=== PATIENT | male | born 1960 | race Caucasian/White ===

== ENCOUNTER 2018-10-25 17:21 | Inpatient (IN) | payer OTHER ==
[~2018-10-25 17:21] MED LIST: ISOVUE-370 76%-LOCM 1 ML ONE
[2018-10-25] MEDS ORDERED: Acetaminophen 500 MG TAB ONE (17:34)
[2018-10-25] MEDS ORDERED: Ondansetron PF 4 MG/2 ML Vial ONE (17:34)
[2018-10-25] MEDS ORDERED: methylPREDNISolone Sod Succ/PF 125 MG/2 ML VIAL ONE (17:51)
[2018-10-25] MEDS ORDERED: Piperacillin/Tazobactam 4.5 GM VIAL ONE (17:51)
[2018-10-25 17:55] LABS: Hemoglobin 14.9 g/dL (14.0-18.0); Mean Corpuscular HGB CONC 33.6 g/dL (32.0-36.0); Mean Corpuscular Hemoglobin 33.1 pg (27.0-31.0); Mean Corpuscular Volume 98.5 fL (78.0-98.0); Mean Platelet Volume 7.5 fL (7.4-10.4); Platelet Count 254 thou/uL (130-400); RBC Distribution Width 11.9 % (11.5-14.5); Red Blood Cell (RBC) Count 4.49 mill/uL (4.70-6.10); White Blood Cell (WBC) Count 15.1 thou/uL (4.8-10.8)
[2018-10-25 18:11] LABS: Actual Bicarbonate (HCO3a) 18.3 mEq/L (22-28); Analyzer IN Cardio ER; Base Excess (BEa) -2.9 mEq/L (-2.0 to +3.0); Calcium, Ionized 1.07 mmol/L (1.12-1.30); Carboxyhemoglobin (COHb) 1.2 gm% (0.0-3.0); Potassium - ABG Lab 3.17 mmol/L (3.70-5.30)
[2018-10-25 18:14] LABS: Band 21 % (5-11); Lymphocytes 13 % (21-51); MDiff Complete? YES; Monocytes 1 % (0-10); Neutrophil 64 % (42-75); Platelet Morphology Comment Appears Adequate; RBC Morphology Normal; Reactive Lymphocytes 1 % (0-10)
[2018-10-25 18:14] LABS: Puncture Site LRA
--- NOTE | 2018-10-25 18:16 | CT ---
CT ANGIOGRAM OF THE CHEST 10/25/18 HISTORY: Dyspnea. COMPARISON: None. TECHNIQUE: CT angiogram of the chest performed in the axial plane. Three dimension reformatted images are submit may for interpretation. FINDINGS: Minimal blebs in the lung apices. There are patchy interstitial and ground glass opacities in the lef t upper lobe. Tree-in-bud opacities in the lingula and inferior aspect of the right lower lobe. Corre late for atypical infection. More focal consolidation in the left lower lobe may represent edema or p neumonia/aspiration. There are no lytic or blastic lesions in the osseous structures. No mediastinal mass or hematoma. The re are nonenlarged paratracheal and AP window lymph nodes. There does appear to be enlarged subcarina l lymph node measuring 2.9 x 1.5 cm. Minimal fullness in the left and right hilum. Normal heart size. No pericardial effusion. The thoracic aorta and abdominal aorta have a normal caliber. No periaortic fat stranding. There is adequate contrast opacification of the central pulmonary arteries to the lev el of the segmental arteries. No filling defect to suggest thromboembolism. Gallbladder is surgically absent. Visualized upper solid organs are unremarkable. There is enlarged r ight axillary lymph node with a preserved fatty hilum. IMPRESSION: 1. No evidence of pulmonary artery embolism to the level of the segmental arteries. 2. Enlarged subcarinal lymph nodes measuring 2.8 x 1.5 cm. Significance of this enlarged lymph n ode is uncertain. Additional scattered nonspecific mediastinal lymph nodes are noted. Given the prese nce of tree-in-bud opacities in the lung parenchyma, possibility of a reactive lymphadenopathy in the mediastinum should be considered. POS: PPP
[2018-10-25 18:19] LABS: ALT (SGPT) 31 U/L (8-55); AST (SGOT) 30 U/L (5-34); Albumin 4.1 g/dL (3.5-5.0); Alkaline Phosphatase 84 U/L (40-150); Anion Gap 15 mmol/L (10-20); BUN (Urea Nitrogen) 15 mg/dL (8.4-25.7); Bilirubin, Total 0.8 mg/dL (0.2-1.2); Calc. Creatinine Clearance 0 mL/min (70-130); Calcium 9.1 mg/dL (7.8-10.44); Carbon Dioxide 20 mmol/L (22-29); Chloride 104 mmol/L (98-107); Estimated GFR-MDRD Greater than 90; Globulin 3.1 g/dL (2.4-3.5); Glucose 122 mg/dL (70-105); Potassium 3.4 mmol/L (3.5-5.1); Protein, Total 7.2 g/dL (6.0-8.3); Sodium 136 mmol/L (136-145)
[2018-10-25 18:29] LABS: Bilirubin Negative (Negative); Blood, Urine Negative (Negative); Clarity CLEAR (Clear); Glucose, Urine (Dipstick) Negative (Negative); Leukocyte Negative (Negative); Nitrite Negative (Negative); Protein, Urine (Dipstick) Negative (Neg-Trace); Specific Gravity, Urine 1.036 (1.002-1.036); pH, Urine 7.5 (5.0-9.0)
--- NOTE | 2018-10-25 18:32 | RAD ---
FRONTAL VIEW CHEST: 10/25/18 INDICATION: Cough. FINDINGS: There is interstitial prominence of the bilateral perihilar regions. Mild elevation of the left hemid iaphragm. The cardiac silhouette is accentuated by portable technique. IMPRESSION: Bilateral perihilar interstitial prominence may relate to edema versus bronchiolitis. Correlate clini dieudonne. Imaging followup may be obtained, as indicated. POS: ALEJANDRO
[2018-10-25 18:41] LABS: CKMB 1.1 ng/mL (0-6.6)
--- NOTE | 2018-10-25 19:48 | PDOC.FPRHP ---
- History of Present Illness Chief Complaint: dyspnea History of Present Illness: Pt is a 58 yo M with PMH of IBS and RA presents for worsening SOB, cough, fever , body aches, and pleuritic chest pain that started 5 days ago. Patient states intermittent fever/chills started 5 days ago (last tuesday) along with cough. Symptoms have been worsening. Today he tried to go to work, and came home because he wasn't feeling well. Significant other stated that when he came home he was confused and staggering, complained of dizziness and lightheadedness and she called the ambulance. He states he doesn't remember driving home and has intermittent memory of what happened when he arrived home. He never lost consciousness. 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 He smokes 1 PPD since age 18. ED Course: In ED his SOB improved with duoneb. Elevated WBC, tachycardic, R were 22, Fever 101.1. CXR showed bilateral perihilar interstitial prominence. CT chest neg for PE, showed enlarged subcarinal lymph nodes and tree-in-bud opacities in lung parnechyma - Allergies/Adverse Reactions Allergies Allergy/AdvReac Type Severity Reaction Status Date / Time No Known Allergies Allergy Verified 10/26/18 00:20 - Home Medications Medication Instructions Recorded Confirmed Type Atorvastatin Calcium [Lipitor] 1 tab PO DAILY 10/25/18 10/25/18 History DULoxetine HCl [Cymbalta] 1 tab PO DAILY 10/25/18 10/25/18 History Gabapentin [Neurontin] 1 tab PO DAILY 10/25/18 10/25/18 History Levothyroxine Sodium [Tirosint] 1 tab PO DAILY 10/25/18 10/25/18 History rOPINIRole HCl [Ropinirole HCl] 1 tab PO HS 10/25/18 10/25/18 History - History PMHx: IBS, RA no meds, RLS, HLD, TSH PSHx: cervical spine surgery,tonsillectomy, cholecystectomy, cardiac cath ( normal) FHx: No cardiac disease, DM in mGM, HTN in mother Social: 1 ppd smoker since age 17 (20 PY), 6 beers/week, denied illicit drug use - Review of Systems General: reports: fever/chills, weight/appetite/sleep changes (decreased appetite), fatigue, other (headache) ENT: denies: nasal congestion, rhinorrhea Respiratory: reports: cough, congestion, shortness of breath Cardiovascular: reports: chest pain. denies: palpitation Gastrointestinal: reports: nausea, vomiting, diarrhea, abdominal pain. denies: constipation, GI bleeding Genitourinary: denies: incontinence, dysuria, polyuria Skin: denies: rashes, lesions Musculoskeletal: reports: stiffness (of joints- worse than his usual RA), swelling, arthritis/arthralgias Neurological: reports: numbness (R leg, he has been worked up with multiple spine MRIs). denies: weakness Psychological: reports: depression (Not treated, sometimes worse with RA flare) . denies: anxiety - Vital signs BP: [117/65] HR: [102] RR: [22] Tmax: [101.1] Pox: [97]% on [RA] Wt: [91 kg] - Physical Exam Constitutional: awake, alert and oriented, other (apperas sweating and flushed) HEENT: normocephalic and atraumatic, PERRLA, EOMI, MMM, oropharynx clear Neck: supple, no LAD Heart: RRR, normal S1/S2, no murmurs/rubs/gallops, pulses present, no edema Lungs: other (diffuse expiratory wheezing and rhonchi) Abdomen: soft, non-tender, bowel sounds present, no masses/distention Neurological: CN II-XII intact, other (strength 5/5 in upper and lower extremities) Psychiatric: normal mood and affect, good judgment and insight, intact recent and remote memory FMR H&P: Results - Labs Result Diagrams: 10/25/18 17:44 10/25/18 17:44 Lab results: WBC 15.1 thou/uL (4.8-10.8) H 10/25/18 17:44 Hgb 14.9 g/dL (14.0-18.0) 10/25/18 17:44 Hct 44.2 % (42.0-52.0) 10/25/18 17:44 MCV 98.5 fL (78.0-98.0) H 10/25/18 17:44 Plt Count 254 thou/uL (130-400) 10/25/18 17:44 Band Neuts % (Manual) 21 % (5-11) H 10/25/18 17:44 ABG pH 7.50 (7.35-7.45) H 10/25/18 18:00 ABG pCO2 24.0 mmHg (35.0-45.0) L* 10/25/18 18:00 ABG pO2 69.0 mmHg (80.0-100.0) L 10/25/18 18:00 Sodium 136 mmol/L (136-145) 10/25/18 17:44 Potassium 3.4 mmol/L (3.5-5.1) L 10/25/18 17:44 Chloride 104 mmol/L (98-107) 10/25/18 17:44 Carbon Dioxide 20 mmol/L (22-29) L 10/25/18 17:44 BUN 15 mg/dL (8.4-25.7) 10/25/18 17:44 Creatinine 0.86 mg/dL (0.7-1.3) 10/25/18 17:44 Glucose 122 mg/dL (70-105) H 10/25/18 17:44 Lactic Acid 2.8 mmol/L (0.5-2.2) H 10/25/18 17:44 Calcium 9.1 mg/dL (7.8-10.44) 10/25/18 17:44 Total Bilirubin 0.8 mg/dL (0.2-1.2) 10/25/18 17:44 AST 30 U/L (5-34) 10/25/18 17:44 ALT 31 U/L (8-55) 10/25/18 17:44 Alkaline Phosphatase 84 U/L (40-150) 10/25/18 17:44 CK-MB (CK-2) 1.1 ng/mL (0-6.6) 10/25/18 17:44 B-Natriuretic Peptide Less than 10.0 pg/mL (0-100) 10/25/18 17:44 Serum Total Protein 7.2 g/dL (6.0-8.3) 10/25/18 17:44 Albumin 4.1 g/dL (3.5-5.0) 10/25/18 17:44 Urine Ketones Negative mg/dL (Negative) 10/25/18 18:05 Urine Blood Negative (Negative) 10/25/18 18:05 Urine Nitrite Negative (Negative) 10/25/18 18:05 Ur Leukocyte Esterase Negative (Negative) 10/25/18 18:05 - EKG Interpretation EK mm ST depression in lateral leads - Radiology Interpretation Chest x-ray Status: image reviewed by me, report reviewed by me Additional comment: CXR showed bilateral perihilar interstitial prominence. CT scan - chest Status: image reviewed by me, report reviewed by me Additional comment: CT chest neg for PE, showed enlarged subcarinal lymph nodes and tree-in-bud opacities in lung parnechyma FMR H&P: A/P - Problem List (1) Sepsis due to pneumonia Current Visit: Yes Status: Acute Code(s): J18.9 - PNEUMONIA, UNSPECIFIED ORGANISM; A41.9 - SEPSIS, UNSPECIFIED ORGANISM (2) Tobacco abuse Current Visit: Yes Status: Chronic Code(s): Z72.0 - TOBACCO USE (3) RLS (restless legs syndrome) Current Visit: Yes Status: Acute (4) HLD (hyperlipidemia) Current Visit: Yes Status: Chronic Code(s): E78.5 - HYPERLIPIDEMIA, UNSPECIFIED (5) Hypothyroid Current Visit: Yes Status: Chronic Code(s): E03.9 - HYPOTHYROIDISM, UNSPECIFIED (6) Rheumatoid arthritis Current Visit: Yes Status: Chronic Code(s): M06.9 - RHEUMATOID ARTHRITIS, UNSPECIFIED (7) IBS (irritable bowel syndrome) Current Visit: Yes Status: Chronic (8) Hypokalemia Current Visit: Yes Status: Chronic Code(s): E87.6 - HYPOKALEMIA - Plan 58 yo M Sepsis 2/2 CAP -Fluid rescuscitation with 30 mg/kg NS, then MIVF with NS @ 125 ml/hr -LA 2.8, WBC 15.1 with bandemia, tachycardic with elevated respirations -Influenza negative -PRN duoneb -Levaquin (10/25) -Strep pneumo urine antigen, Legionella urine -Procal -PRN zofran -PRN tylenol and ibuprofen for fever -blood and urine cx pending -AM CBC and CMP Indeterminate trop - EKG showed 1mm st depression in lateral lead -.029, trending Tobacco abuse -1 ppd smoker -Nicoderm RLS -home ropinirole HLD -continue home atorvastatin Hypothyroid -TSH Rheumatoid arthritis -Not on medication, aware IBS -chronic diarrhea, aware Mild hypokalemia -3.4, continue to monitor Dispo: admit to medical, LOS >2 midnights DVT ppx: lovenox Code status: full Diet: regular FMR H&P: Upper Level - Pertinent history Kevin Camejo is a 58 year old male with a history of tobacco abuse who presents to the ED for 1 week history of dyspnea and fever. 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 - Pertinent findings Tmax: 101.1 RR: 22 97% on RA BP: 117/65 wt: 91 kg Exam: General: alert and oriented; ill-appearing, diaphoretic Heart: RRR, no MRG Lungs: bibasilar crackles. faint wheezes in upper lung quigley. No use of accessory muscles of respiration. Extremities: no peripheral edema - Plan Date/Time: 10/25/181947 I, Radha Torres, have evaluated this patient and agree with findings/plan as outlined by internet merchant resident. Pertinent changes/additions are listed here. Assessment/Plan 1. Sepsis secondary to community acquired pneumonia. - will admit pt to medical inpatient - received 2L.. Will administer another 700 ml to achieve 30 ml/kg fluid bolus. - blood cultures pending - procal, urine legionella/strep - will treat with Levaquin 750 mg - supplemental oxygen if needed. PRN duonebs. 2. Tobacco abuse - TD nicotine 3. IBS - home meds 4. Hypothyroidism -home meds, check TSH 5. Chronic pain -home meds 6. RA - not currently on medications. Addendum - Attending - Attending Attestation Date/Time: 10/26/18517 I personally evaluated the patient and discussed the management with Dr. 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
[2018-10-25] MEDS ORDERED: Ibuprofen 600 MG TAB PO PRN (20:54)
[2018-10-25] MEDS ORDERED: Sodium Chloride 0.9% 1,000 ML IV SCH (21:15)
[2018-10-25 21:42] LABS: Lactic Acid 1.7 mmol/L (0.5-2.2)
[2018-10-25 21:46] LABS: Troponin I 0.017 ng/mL (< 0.028)
[2018-10-25] MEDS ORDERED: Ondansetron ODT 4 MG TAB PO PRN (22:55)
[2018-10-25] MEDS ORDERED: Loperamide HCl 2 MG CAP PO PRN (22:55)
[2018-10-25] MEDS ORDERED: Ondansetron PF 4 MG/2 ML Vial IVP PRN (22:55)
[2018-10-25] MEDS ORDERED: Acetaminophen 650 MG Suppository PR PRN (22:55)
[2018-10-25] MEDS ORDERED: Acetaminophen 325 MG TAB PO PRN (22:55)
[2018-10-25] MEDS: Sodium Chloride 0.9% 1,000 ML IV SCH (23:14)
[2018-10-25 23:34] VITALS: BMI 27.8
[2018-10-25] MEDS ORDERED: rOPINIRole HCl 1 MG TAB PO SCH (23:59)
--- NOTE | 2018-10-26 | PDOC.EVN ---
Addendum - Attending - Attending Attestation Date/Time: 10/25/18 [id number] I personally evaluated the patient and discussed the management with Dr. Jeffrey I agree with the History, Examination, Assessment and Plan documented in Resident HX and PE see for further details . 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 Patient present with SOB, CXR and CT suggest Pneumonia. PMHX notable for RA off DMARDS at present, IBS,Hypothyroidism,colon polyps with positive FMHX colon CA father. Patient with heart cath approximately one year ago in [place] self reported as normal. Exam notable for diffuse crackles throughout lung quigley. Patient with sepsis from PNA strongly consider atypicals legionella etc admit for empirical AB and further evaluation.
[2018-10-26 00:38] LABS: Legionella Urinary Ag Negative (Negative); Strep pneumo Urine Ag NEGATIVE (NEGATIVE)
[2018-10-26] MEDS: Sodium Chloride 0.9% 1,000 ML IV SCH (05:21)
[2018-10-26] MEDS ORDERED: Levothyroxine Sodium 88 MCG TAB PO SCH (06:00)
--- NOTE | 2018-10-26 06:56 | PDOC.FM ---
- Subjective Subjective: NAEO. Patient reports that his CP has improved. Still endorses fever & chills overnight. Says appetite is ok and main complaint is just being tired. Has a persistent cough but says it is non-productive. Denies any SOB. - Objective MAR Reviewed: Yes Vital Signs & Weight: Vital Signs (12 hours) Temp Pulse Resp BP Pulse Ox 10/26/18 05:25 98.4 F 62 18 94/58 L 97 10/26/18 00:20 100 10/25/18 22:55 98.2 F 61 18 92/62 100 Weight Weight 90.673 kg Result Diagrams: 10/26/18 07:29 10/26/18 07:29 Phys Exam - Physical Examination Constitutional: NAD HEENT: moist MMs, sclera anicteric Neck: supple, full ROM Respiratory: no wheezing, no rales, no rhonchi, clear to auscultation bilateral Cardiovascular: RRR, no significant murmur Gastrointestinal: soft, positive bowel sounds Neurological: non-focal, moves all 4 limbs Psychiatric: normal affect, A&O x 3 Skin: no rash, normal turgor Dx/Plan (1) Sepsis due to pneumonia Code(s): J18.9 - PNEUMONIA, UNSPECIFIED ORGANISM; A41.9 - SEPSIS, UNSPECIFIED ORGANISM Status: Acute (2) RLS (restless legs syndrome) Status: Acute (3) HLD (hyperlipidemia) Code(s): E78.5 - HYPERLIPIDEMIA, UNSPECIFIED Status: Chronic (4) Hypokalemia Code(s): E87.6 - HYPOKALEMIA Status: Chronic (5) Hypothyroid Code(s): E03.9 - HYPOTHYROIDISM, UNSPECIFIED Status: Chronic (6) IBS (irritable bowel syndrome) Status: Chronic (7) Rheumatoid arthritis Code(s): M06.9 - RHEUMATOID ARTHRITIS, UNSPECIFIED Status: Chronic (8) Tobacco abuse Code(s): Z72.0 - TOBACCO USE Status: Chronic - Plan Plan: 58 YOM w/ a PMH significant for tobacco use and RA who presented to the ED with a CC of pleuritic chest pain with associated fever that began 5 days ago and was determined to be septic 2/2 CAP. Sepsis 2/2 CAP -Patient is s/p 30 mg/kg NS in the ED. Will continue MIVFs but with LR @ 125 ml/ hr. -LA 2.8 but trended down to 1/7 s/p fluid resuscitation overnight. WBC 15.1 with bandemia but down to 13 this AM. Tachycardia & fever have resolved since being on the floor. Lungs CTAB; however, patient tachypnic on exam. -Influenza negative & strep pneumo & legionella urine antigens negative. Legionella PCR pending. - Procal 1.0 w/ blood Cxs pending. - Will continue IV levaquin since procal in indeterminate range. - Will continue PRN Duonebs, zofran, and tylenol and ibuprofen for symptomatic treatment. Will consider initiating IS as well. Metabolic acidosis - Likely 2/2 lactic acidosis in setting of acute illness. However, lactate improved and acidosis worsened per AM BMP. - Will switch to LR for mIVFs and continue to monitor. Patient tachypnic on exam though so could be compensation for respiratory alkalosis. - Will continue to monitor w/ QD BMPs. Indeterminate trop - EKG showed 1mm st depression in lateral lead - Initial troponin .029 but downtrended. Likely 2/2 demand ischemia in setting of acute illness. Tobacco abuse -1 ppd smoker -Albinm RLS -home ropinirole HLD -continue home atorvastatin Hypothyroid -TSH WNLs Rheumatoid arthritis -Not on medication, aware IBS -chronic diarrhea, aware Chronic neck and back pain - Patient reports taking [place] PRN at home. - Will request home med list before initiating in hospital. - Will continue ibuprofen and tylenol for pain control for now. - Will also consider adding a muscle relaxer PRN as patient said these have helped him in the past as well. Mild hypokalemia, resolved - K 3.8 this AM. - Will continue to monitor Dispo: admit to medical, LOS >2 midnights DVT ppx: lovenox Code status: full Diet: HH Abx: Levaquin IVFs: LR @ 125mL/hr Addendum - Attending - Attending Attestation Date/Time: 10/26/18 [id number] I personally evaluated the patient and discussed the management with Dr. Espino I agree with the History, Examination, Assessment and Plan documented above with any addition or exceptions noted below- Patient feeling better; sill feeling weak/tired. Afebrile VSS. A/P: 1) CAP - Continue current abx. Await legionella pcr. 2) Lactic acidosis- resolved; continue IVF. 3) hypothyroidism- continue home meds.
[2018-10-26 07:51] LABS: #Lymphocytes 1.6 thou/uL (1.20-3.40); #Monocytes 0.7 thou/uL (0.11-0.59); #Neutrophils 11.3 thou/uL (1.40-6.50); %Eosinophils 0.2 % (0.0-10.0); %Lymphocytes 11.7 % (21.0-51.0); %Monocytes 5.1 % (0.0-10.0); %Neutrophils 82.9 % (42.0-75.0); Hemoglobin 12.6 g/dL (14.0-18.0); Mean Corpuscular HGB CONC 33.3 g/dL (32.0-36.0); Mean Corpuscular Hemoglobin 33.4 pg (27.0-31.0); Mean Platelet Volume 7.7 fL (7.4-10.4); Platelet Count 219 thou/uL (130-400); RBC Distribution Width 11.9 % (11.5-14.5); Red Blood Cell (RBC) Count 3.76 mill/uL (4.70-6.10); White Blood Cell (WBC) Count 13.6 thou/uL (4.8-10.8)
[2018-10-26 08:12] LABS: Anion Gap 14 mmol/L (10-20); BUN (Urea Nitrogen) 15 mg/dL (8.4-25.7); Calc. Creatinine Clearance 141 mL/min (70-130); Calcium 8.6 mg/dL (7.8-10.44); Carbon Dioxide 18 mmol/L (22-29); Chloride 112 mmol/L (98-107); Estimated GFR-MDRD Greater than 90; Glucose 173 mg/dL (70-105); Potassium 3.8 mmol/L (3.5-5.1); Sodium 140 mmol/L (136-145)
[2018-10-26] MEDS: Enoxaparin Sodium 40 MG/0.4 ML SYRINGE SC SCH (08:22)
[2018-10-26] MEDS: Atorvastatin Calcium 20 MG TAB PO SCH (08:23)
[2018-10-26] MEDS: Nicotine 21 MG PATCH TD SCH (08:24)
[2018-10-26] MEDS ORDERED: Cyclobenzaprine 10 MG TAB PO PRN (09:10)
[2018-10-26] MEDS: Lactated Ringer's 1,000 ML IV SCH ×3 (11:50→19:51)
[2018-10-26] MEDS ORDERED: tiZANidine HCl 4 MG TAB PO PRN (12:56)
[2018-10-26] MEDS ORDERED: DULoxetine 60 MG CAP PO SCH (13:15)
--- NOTE | 2018-10-26 13:17 | EKG ---
Test Reason : Blood Pressure : / mmHG Vent. Rate : 068 BPM Atrial Rate : 068 BPM P-R Int : 142 ms QRS Dur : 076 ms QT Int : 468 ms P-R-T Axes : 059 065 093 degrees QTc Int : 497 ms Normal sinus rhythm Nonspecific ST and T wave abnormality Abnormal ECG No previous ECGs available Confirmed by MONSE GARCIA, DR. Lomas ([id number]) on 10/26/2018 1:17:07 PM Referred By: NICOLE Confirmed By:DR. Abebe SHEA MD
[2018-10-26] MEDS ORDERED: Gabapentin 100 MG CAP PO SCH ×2 (15:00→21:00)
[2018-10-26] MEDS: Gabapentin 300 MG CAP PO SCH ×2 (15:50→20:08)
[2018-10-26] MEDS: HYDROcodone/Acetaminophen 5/325 mg Tablet PO PRN ×2 (15:58→23:59)
[2018-10-26] MEDS ORDERED: rOPINIRole HCl 1 MG TAB PO SCH (21:00)
[2018-10-27] MEDS: Lactated Ringer's 1,000 ML IV SCH (04:11)
[2018-10-27] MEDS ORDERED: Levothyroxine Sodium 112 MCG TAB PO SCH (06:00)
[2018-10-27] MEDS ORDERED: Levothyroxine 150 MCG TAB PO SCH (06:00)
--- NOTE | 2018-10-27 07:27 | PDOC.FM ---
- Subjective Subjective: NAEO. Patient states he feels tired this AM and still did not sleep well overnight despite getting his regular pain med regimen. Denies any chest pain, SOB, or wheezing. Has a persistent cough but states it is non-productive. Denies any N/V/D. - Objective MAR Reviewed: Yes Vital Signs & Weight: Vital Signs (12 hours) Temp Pulse Resp BP BP Pulse Ox 10/27/18 04:29 121/78 10/26/18 19:50 98.7 F 62 18 109/62 95 Weight Weight 90.673 kg I&O: 10/26/18 10/27/18 10/28/18 06:59 06:59 06:59 Intake Total 5890 Output Total 0 Balance 5890 Result Diagrams: 10/27/18 08:33 10/27/18 08:33 Phys Exam - Physical Examination Constitutional: NAD HEENT: moist MMs, sclera anicteric Neck: supple, full ROM Respiratory: no wheezing, no rales, no rhonchi, clear to auscultation bilateral Cardiovascular: RRR, no significant murmur Gastrointestinal: no distention, positive bowel sounds Neurological: non-focal, moves all 4 limbs Psychiatric: normal affect, A&O x 3 Skin: no rash, normal turgor Dx/Plan (1) Sepsis due to pneumonia Code(s): J18.9 - PNEUMONIA, UNSPECIFIED ORGANISM; A41.9 - SEPSIS, UNSPECIFIED ORGANISM Status: Acute (2) RLS (restless legs syndrome) Status: Acute (3) HLD (hyperlipidemia) Code(s): E78.5 - HYPERLIPIDEMIA, UNSPECIFIED Status: Chronic (4) Hypokalemia Code(s): E87.6 - HYPOKALEMIA Status: Chronic (5) Hypothyroid Code(s): E03.9 - HYPOTHYROIDISM, UNSPECIFIED Status: Chronic (6) IBS (irritable bowel syndrome) Status: Chronic (7) Rheumatoid arthritis Code(s): M06.9 - RHEUMATOID ARTHRITIS, UNSPECIFIED Status: Chronic (8) Tobacco abuse Code(s): Z72.0 - TOBACCO USE Status: Chronic - Plan Plan: 58 YOM w/ a PMH significant for tobacco use and RA who presented to the ED with a CC of pleuritic chest pain with associated fever that began 5 days ago and was determined to be septic 2/2 CAP. Sepsis 2/2 CAP - Tachycardia & fever have resolved since being on the floor. Lungs CTAB on exam. - Influenza negative & strep pneumo & legionella urine antigens negative. Legionella PCR pending. - Procal 1.0 w/ blood Cxs NTD. Repeat procal pending for this AM to monitor response to treatment. - Will switch to PO levaquin since patient is tolerating PO well. - Will continue PRN Duonebs, zofran, and tylenol and ibuprofen for symptomatic treatment. Will consider initiating IS today. Metabolic acidosis - Resolved as HCO3 WNLs at 26 this AM. - Will stop IVFs as patient has just over 3L of PO intake yesterday. - Will continue to monitor. Indeterminate trop - EKG showed 1mm st depression in lateral lead - Initial troponin .029 but downtrended. Likely 2/2 demand ischemia in setting of acute illness. Tobacco abuse -1 ppd smoker -Nicoderm RLS -home ropinirole HLD -continue home atorvastatin Hypothyroid -TSH WNLs Rheumatoid arthritis -Not on medication, aware IBS -chronic diarrhea, aware Chronic neck and back pain - Will continue home [place] & zanaflex that was confirmed with patient's pharmacy yesterday. Mild hypokalemia, resolved - K WNLs this AM. - Will continue to monitor Dispo: Will monitor over the course of today and if patient remains stable in no respiratory distress, will possibly d/c home on PO abx. DVT ppx: lovenox Code status: full Diet: HH Abx: Levaquin IVFs: SL Addendum - Attending - Attending Attestation Date/Time: 10/27/18 6789 I personally evaluated the patient and discussed the management with Dr. Espino I agree with the History, Examination, Assessment and Plan documented above with any addition or exceptions noted below- [place] feeling much better. Decreased cough and malaise. Walking in hallways. Afebrile VSS. A/P: 1) CAP - improved; continue levaquin ans re-evaluate in afternoon. If continuing to do well will d/c home.
[2018-10-27] MEDS: Atorvastatin Calcium 20 MG TAB PO SCH (08:12)
[2018-10-27] MEDS: Gabapentin 300 MG CAP PO SCH ×2 (08:12→15:27)
[2018-10-27] MEDS: Enoxaparin Sodium 40 MG/0.4 ML SYRINGE SC SCH (08:13)
[2018-10-27] MEDS: Nicotine 21 MG PATCH TD SCH (08:15)
[2018-10-27 08:47] LABS: #Eosinphils 0.1 thou/uL (0.0-0.7); #Monocytes 0.7 thou/uL (0.11-0.59); #Neutrophils 6.5 thou/uL (1.40-6.50); %Basophils 0.3 % (0.0-1.0); %Eosinophils 0.6 % (0.0-10.0); %Lymphocytes 29.1 % (21.0-51.0); %Monocytes 6.6 % (0.0-10.0); %Neutrophils 63.3 % (42.0-75.0); Hemoglobin 12.8 g/dL (14.0-18.0); Mean Corpuscular Hemoglobin 32.4 pg (27.0-31.0); Platelet Count 239 thou/uL (130-400); RBC Distribution Width 12.2 % (11.5-14.5); Red Blood Cell (RBC) Count 3.95 mill/uL (4.70-6.10); White Blood Cell (WBC) Count 10.3 thou/uL (4.8-10.8)
[2018-10-27] MEDS ORDERED: DULoxetine 60 MG CAP PO SCH (09:00)
[2018-10-27 09:05] LABS: Anion Gap 11 mmol/L (10-20); BUN (Urea Nitrogen) 16 mg/dL (8.4-25.7); Calc. Creatinine Clearance 141 mL/min (70-130); Calcium 9.1 mg/dL (7.8-10.44); Carbon Dioxide 26 mmol/L (22-29); Chloride 108 mmol/L (98-107); Estimated GFR-MDRD Greater than 90; Glucose 108 mg/dL (70-105); Potassium 3.9 mmol/L (3.5-5.1); Sodium 141 mmol/L (136-145)
[2018-10-27 12:14] VITALS: BP 151/93; TEMP 98
--- NOTE | 2018-10-30 12:33 | DIS ---
DATE OF ADMISSION: 10/25/2018 DATE OF DISCHARGE: 10/27/2018 RESIDENT: Padmini Espino MD ADMITTING ATTENDING: Eben Eaton MD DISCHARGE ATTENDING: Tiffany St MD CONSULTS: None. PROCEDURES: 1. Chest x-ray on 10/25/2018, showed bilateral perihilar interstitial prominence related to edema versus bronchiolitis. 2. Chest CTA on 09/28/2018 significant for enlarged subcarinal lymph nodes measuring 2.8 x 1.5 cm. Significance of this enlarged lymph node is uncertain. Additional scattered nonspecific mediastinal lymph nodes are noted. Given the presence of tree-in-bud opacities in the lung parenchyma, possibility of a reactive lymphadenopathy in the mediastinum should be considered. PRIMARY DIAGNOSES: 1. Community-acquired pneumonia. 2. Hypokalemia. SECONDARY DIAGNOSES: 1. Hypothyroidism. 2. Rheumatoid arthritis. 3. Irritable bowel syndrome. 4. Hyperlipidemia. 5. Restless legs syndrome. 6. Tobacco abuse. DISCHARGE MEDICATIONS: 1. Ropinirole 1 mg tablet p.o. at bedtime. 2. Atorvastatin 20 mg p.o. daily. 3. Acetaminophen 650 mg p.o. every 4 hours p.r.n. 4. Omnicef 300 mg p.o. every 12 hours for 8 days. 5. Duloxetine 60 mg p.o. daily. 6. Gabapentin 600 mg p.o. t.i.d. 7. [place] 5/325 tabs, 2 tabs p.o. every 8 hours p.r.n. 8. Ibuprofen 600 mg p.o. every 6 hours p.r.n. 9. Synthroid 112 mcg p.o. daily. 10. Loperamide 4 mg p.o. p.r.n. 11. Protonix 40 mg p.o. daily. 12. Tizanidine 4 mg p.o. t.i.d. p.r.n. 13. Albuterol sulfate 2 puffs inhaled every 4 hours p.r.n. for shortness of breath and wheezing. DISCONTINUED MEDICATIONS: None. HOSPITAL COURSE: The patient is a 58-year-old gentleman with a past medical history significant for RA, not on immunosuppression therapy, & tobacco use who presented to the emergency department with a chief complaint of worsening shortness of breath with associated cough, fever, body aches, and pleuritic chest pain that began approximately 5 days prior to presentation. On examination in the emergency department, the patient was initially noted to be tachycardic with a respiratory rate of 22 and febrile up to 101.1. Routine lab work was significant for an elevated white blood cell count of 15.1 and mild hypokalemia with a potassium of 3.4. The patient's lactate level was also elevated at 2.8 and due to his tachypnea, an ABG was obtained which was significant for metabolic alkalosis with a pH of 7.5 and pCO2 of 24. Blood cultures and urine cultures were also obtained due to the patient's elevated lactate level. A chest CT was also done which was significant for some mediastinal lymphadenopathy suggestive of possible pneumonia versus bronchiolitis. Thus, due to the patient's fever, elevated white count and tachycardia in conjunction with this chest imaging, the Emergency Department determined the patient to be septic secondary to presumed community-acquired pneumonia. The patient was given 2 nebulized DuoNeb breathing treatments, 2 L of normal saline , 125 mg of IV Solu-Medrol, 4.5 g of IV Zosyn, 1 g of p.o. Tylenol and 4 mg of IV Zofran. He was then admitted to the medical floor for closer observation overnight and was continued on IV fluid resuscitation with maintenance IV fluids of NS at 125 an hour. The patient was also given a dose of IV Levaquin and strep pneumo and Legionella urine antigens were obtained, both of which were negative. Initial procalcitonin level was slightly elevated at 1.0 and initial flu swab was negative. Once on the floor, the patient was continued on IV fluids and antibiotics over the course of the second day of hospitalization and remained afebrile and hemodynamically stable over the course of that day. By the date of discharge, the patient was tolerating p.o. well and was therefore transitioned to p.o. antibiotics and IV fluids were discontinued. The patient was closely monitored for the first half of the day and due to the fact that he remained hemodynamically stable and did not require any oxygen and remained afebrile, he was cleared to be discharged home on p.o. antibiotics with close follow-up with his primary care physician within 1 week of discharge. DISPOSITION: Stable. DISCHARGE INSTRUCTIONS: 1. Location: Home. 2. Diet: Regular diet. 3. Activity: As tolerated. No restrictions. 4. Follow-up: The patient was instructed to follow up with his primary care provider within 1 week of discharge. Job ID: [id number] MTDD
[2018-10-30 23:08] LABS: L.pneumophilia Abs <0.91 OD ratio (0.00-0.90)
== END 2018-10-27 15:36 | disposition home or self-care (01) | DRG 871 ==
LOC: ERS 17:21 → T4-A 19:56
PROVIDERS: ADMIT Family Medicine; ATTEND Family Medicine
DX: A41.9 Sepsis, unspecified organism (principal); J18.9 Pneumonia, unspecified organism; E87.3 Alkalosis; M06.9 Rheumatoid arthritis, unspecified; K58.9 Irritable bowel syndrome, unspecified; G25.81 Restless legs syndrome; E78.5 Hyperlipidemia, unspecified; E87.6 Hypokalemia; F17.210 Nicotine dependence, cigarettes, uncomplicated; E03.9 Hypothyroidism, unspecified; Z90.89 Acquired absence of other organs; Z90.49 Acquired absence of other specified parts of digestive tract; Z98.890 Other specified postprocedural states
CPT/HCPCS: 36415; 71045; 71275; 80048; 80053; 81003; 82553; 82805; 83605; 83880; 84145; 84443; 84484; 85025; 86713; 87040; 87086; 87804; 87899; 93005; 93010; 94640; 96361; 96365; 96375; J1650; J1956; J2405; J2543; J2930; J7620; Q9966

== ENCOUNTER 2019-07-20 07:04 | Emergency (ER) | payer OTHER ==
[2019-07-20] MEDS ORDERED: HYDROcodone/Acetaminophen 5/325 mg Tablet ONE (07:22)
[2019-07-20 07:33] LABS: Bilirubin Negative (Negative); Blood, Urine Negative (Negative); Clarity Clear (Clear); Glucose, Urine (Dipstick) Normal (Negative); Leukocyte Negative Leu/uL (Negative); Nitrite Negative (Negative); Protein, Urine (Dipstick) Negative (Neg-Trace); Urobilinogen Normal mg/dL (Less than 2)
--- NOTE | 2019-07-20 07:48 | RAD ---
EXAM: Right rib series with chest x-ray HISTORY: Right rib pain COMPARISON: None FINDINGS: Single view of the chest shows a normal sized cardiomediastinal silhouette. There is no brea dence of consolidation, mass, or pleural effusion. Multiple views of the right ribs shows no evidence of displaced rib fracture. No underlying pleural t hickening or pneumothorax are seen. IMPRESSION: 1. No evidence of displaced rib fracture. 2. No evidence of acute cardiopulmonary disease.
== END 2019-07-20 08:15 | disposition home or self-care (01) ==
LOC: ERS 07:04
DX: S20.211A Contusion of right front wall of thorax, initial encounter (principal); F17.210 Nicotine dependence, cigarettes, uncomplicated; Z79.899 Other long term (current) drug therapy; W19.XXXA Unspecified fall, initial encounter
CPT/HCPCS: 81003